=== PATIENT | male | born 1950 | race Caucasian/White ===

== ENCOUNTER 2019-02-13 15:33 | Inpatient (IN) | payer OTHER ==
[~2019-02-13] VITALS: Ht 177.8 cm; Wt 89.4 kg
[2019-02-13 16:08] LABS: BASOPHILS ABSOLUTE AUTO 0.02 K/mm3 (0.00-0.23); BASOPHILS PERCENT AUTO 0 % (0-2); EOSINOPHILS PERCENT AUTO 0 % (0-6); Hematocrit 42.9 % (37.0-53.0); IMMATURE GRAN ABSOLUTE AUTO 0.13 K/mm3 (0.00-0.10); IMMATURE GRAN PERCENT AUTO 1 % (0-1); LYMPHOCYTES ABSOLUTE AUTO 0.88 K/mm3 (0.84-5.20); LYMPHOCYTES PERCENT AUTO 6 % (21-46); MONOCYTES ABSOLUTE AUTO 0.82 K/mm3 (0.16-1.47); MONOCYTES PERCENT AUTO 6 % (4-13); Mean Corpuscular HGB 35.5 pg (26.0-34.0); Mean Corpuscular Volume 101 fL (80-100); Mean Platelet Volume 10.7 fL (9.1-12.4); NEUTROPHILS ABSOLUTE AUTO 12.25 K/mm3 (1.96-9.15); NEUTROPHILS PERCENT AUTO 87 % (41-73); Platelet Count 99 K/mm3 (150-400); RDW Coefficient Variation 13.2 % (11.7-14.2); RDW Standard Deviation 49.1 fL (35.1-46.3); Red Blood Cell Count 4.23 M/mm3 (4.30-5.90)
[2019-02-13 16:39] LABS: Alanine Aminotransfer (ALT/SGP 44 U/L (12-78); Albumin, Blood 2.1 g/dL (3.4-5.0); Albumin/Globulin Ratio 0.4 (0.8-1.8); Alk Phos 113 U/L (50-136); Anion Gap 8 mmol/L (6-16); Aspartate Aminotrans (AST/SGOT 68 U/L (12-37); Bilirubin, Total 1.1 mg/dL (0.1-1.0); Blood Urea Nitrogen 12 mg/dL (8-24); Bun/Creatinine Ratio 11.2 (12.0-20.0); CO2, Blood 27 mmol/L (21-32); Calcium, Blood 7.9 mg/dL (8.5-10.1); Chloride, Blood 99 mmol/L (98-108); Creatinine, Blood 1.07 mg/dL (0.60-1.20); Globulin, Blood 4.7 g/dL (2.2-4.0); Glomerular Filtration Rate >60 (60-); Glucose, Blood 229 mg/dL (70-99); Potassium, Blood 3.3 mmol/L (3.5-5.5); Sodium, Blood 134 mmol/L (136-145); Total Protein, Blood 6.8 g/dL (6.4-8.2); Troponin I 0.015 ng/mL (0.000-0.040)
[2019-02-13] MEDS ORDERED: Bumetanide2 MG PO (20:09)
[2019-02-13] MEDS ORDERED: Aspirin EC81 MG PO (20:09)
[2019-02-13] MEDS ORDERED: CARV3.125 PO (20:10)
[2019-02-13] MEDS ORDERED: CLOP75 PO (20:10)
[2019-02-13] MEDS ORDERED: CHOL10002 PO (20:10)
[2019-02-13] MEDS ORDERED: FURO80 PO (20:11)
[2019-02-13] MEDS ORDERED: FURO20 PO (20:12)
[2019-02-13] MEDS ORDERED: MAGNESIUM400 M1 PO (20:13)
[2019-02-13] MEDS ORDERED: OMEP20ER PO (20:13)
[2019-02-13] MEDS ORDERED: POTA20LUD PO (20:14)
[2019-02-13] MEDS ORDERED: FERSU300 PO (22:15)
[2019-02-13] MEDS ORDERED: Norco 10-325 T1 EACH PO (22:17)
--- NOTE | 2019-02-13 22:36 | NUR ---
Patient arrived to the floor via gurney was able to transfer self to bed indepentantly. was at bedside and assisted with history. Patient settled in bed comfortably. Admission and history completed.
--- NOTE | 2019-02-14 04:25 | NUR ---
SHIFT SUMMARY: 69 Y/O MALE RESTED COMFORABLY IN BED ALL SHIFT WITH RLE ELEVATED ONE PILLOW, RLE WARM AND RED TO TOUCH, DENIES NEED PAIN MEDS AT THIS TIME, HAPPY AND COOPERATIVE, BED LOW POSITION, CALL LIGHT AT SIDE.
[2019-02-14 05:09] LABS: BASOPHILS ABSOLUTE AUTO 0.01 K/mm3 (0.00-0.23); BASOPHILS PERCENT AUTO 0 % (0-2); EOSINOPHILS ABSOLUTE AUTO 0.03 K/mm3 (0.00-0.68); EOSINOPHILS PERCENT AUTO 0 % (0-6); Hematocrit 39.5 % (37.0-53.0); Hemoglobin 13.9 g/dL (13.5-17.5); IMMATURE GRAN ABSOLUTE AUTO 0.02 K/mm3 (0.00-0.10); IMMATURE GRAN PERCENT AUTO 0 % (0-1); LYMPHOCYTES ABSOLUTE AUTO 1.33 K/mm3 (0.84-5.20); LYMPHOCYTES PERCENT AUTO 18 % (21-46); MONOCYTES ABSOLUTE AUTO 0.55 K/mm3 (0.16-1.47); MONOCYTES PERCENT AUTO 7 % (4-13); Mean Corpuscular HGB Conc 35.2 g/dL (31.5-36.5); Mean Corpuscular Volume 102 fL (80-100); Mean Platelet Volume 10.9 fL (9.1-12.4); NEUTROPHILS ABSOLUTE AUTO 5.65 K/mm3 (1.96-9.15); NEUTROPHILS PERCENT AUTO 75 % (41-73); Platelet Count 87 K/mm3 (150-400); RDW Coefficient Variation 13.2 % (11.7-14.2); Red Blood Cell Count 3.86 M/mm3 (4.30-5.90); White Blood Cell Count 7.59 K/mm3 (4.00-11.30)
[2019-02-14 05:22] LABS: Anion Gap 6 mmol/L (6-16); Blood Urea Nitrogen 13 mg/dL (8-24); Bun/Creatinine Ratio 12.3 (12.0-20.0); CO2, Blood 32 mmol/L (21-32); Calcium, Blood 7.7 mg/dL (8.5-10.1); Chloride, Blood 99 mmol/L (98-108); Creatinine, Blood 1.06 mg/dL (0.60-1.20); Glomerular Filtration Rate >60 (60-); Glucose, Blood 128 mg/dL (70-99); Magnesium, Blood 1.3 mg/dL (1.6-2.4); Potassium, Blood 2.9 mmol/L (3.5-5.5); Sodium, Blood 137 mmol/L (136-145)
--- NOTE | 2019-02-14 18:35 | NUR ---
SHIFT SUMMARY RLE RED ON LOWER LEG AND UPPER LATERAL LEG WELL WITH LINES AROUND IT. REPORTS PAIN TO UPPER LATERAL R LEG BUT DECLINES PAIN MEDS. ATTEMPTING TO DOZE WHEN NOT BEING ATTENDED TO. USING URINAL. NO FEVERS. BLOOD PRESSURE IMPROVED SINCE FLUID BOLUS. ASYMPTOMATIC WITH LOW BLOOD PRESSURES. AT BEDSIDE AT THIS TIME. NOTIFIED TODAY OF POSITIVE BLOOD CULTURE.
--- NOTE | 2019-02-14 20:28 | NUR ---
PT WAS NOTED TO HAVE TWO DIFFERENT SETS OF BLOOD CULTURES ORDERED, FIRST SET WAS DRAWN 02/13 AT 1930 PRIOR TO ANTIBIOTICS GETTING STARTED. ANOTHER SET OF BLOOD CULTURES WAS ORDERED FOR THIS EVENING (REPEAT SET). THIS NURSE CALLED MIKHAIL SOTOMAYOR WHOM SAID TO DRAW CULTURES ORDERED BY DR SHELLEY.
--- NOTE | 2019-02-15 04:25 | NUR ---
SHIFT SUMMARY: 69 Y/O MALE RESTED COMFORTABLY ALL SHIFT, DENIES PAIN OR NAUSEA, VOIDING CLEAR YELLOW FLUID, HAPPY AND COOPERATIVE, BED LOW POSITION, CALL LIGHT AT SIDE.
--- NOTE | 2019-02-15 07:57 | NUR ---
BP 99/[address] COVARRUBIAS, HOLD ALDACTONE, ZESTRIL FLOMAX TODAY. REDUCE LASIX TO 60 MG
--- NOTE | 2019-02-15 08:00 | NUR ---
PT PLEASANT TALKATIVE. STATES FEELS BETTER, LEG IMPROVED SOME. HR REG, NO MURMER NOTED. NO TELE. LUNGS CLEAR, RESP EASY, UNLABORED. ON R.A. BT X4 LAST BM TODAY, STATES NORMAL. VOIDS PER JRINAL. 1 ASST TO BATHROOM. BED IN LOW POSITION,C ALL LITEIN REACH, CALLS APPROP
[2019-02-15 09:53] LABS: BASOPHILS ABSOLUTE AUTO 0.02 K/mm3 (0.00-0.23); BASOPHILS PERCENT AUTO 0 % (0-2); EOSINOPHILS ABSOLUTE AUTO 0.44 K/mm3 (0.00-0.68); EOSINOPHILS PERCENT AUTO 8 % (0-6); Hematocrit 40.1 % (37.0-53.0); Hemoglobin 13.6 g/dL (13.5-17.5); IMMATURE GRAN ABSOLUTE AUTO 0.02 K/mm3 (0.00-0.10); IMMATURE GRAN PERCENT AUTO 0 % (0-1); LYMPHOCYTES ABSOLUTE AUTO 1.99 K/mm3 (0.84-5.20); LYMPHOCYTES PERCENT AUTO 34 % (21-46); MONOCYTES ABSOLUTE AUTO 0.75 K/mm3 (0.16-1.47); MONOCYTES PERCENT AUTO 13 % (4-13); Mean Corpuscular HGB 35.7 pg (26.0-34.0); Mean Corpuscular HGB Conc 33.9 g/dL (31.5-36.5); Mean Platelet Volume 10.7 fL (9.1-12.4); NEUTROPHILS ABSOLUTE AUTO 2.64 K/mm3 (1.96-9.15); NEUTROPHILS PERCENT AUTO 45 % (41-73); Platelet Count 113 K/mm3 (150-400); RDW Coefficient Variation 13.3 % (11.7-14.2); RDW Standard Deviation 51.8 fL (35.1-46.3); Red Blood Cell Count 3.81 M/mm3 (4.30-5.90); White Blood Cell Count 5.86 K/mm3 (4.00-11.30)
[2019-02-15 09:56] LABS: Mean Corpuscular Volume 105 fL (80-100)
--- NOTE | 2019-02-15 10:38 | NUR ---
Spiritual care/ advance directive education visit conducted. Patient is lying in bed and alert. Patient easily engages in conversation and shares that he is inspired by cars, motorcycles, family, his dog and his coni (Cristina). Patient tells about his career, his family history, his service ([employer]) and his spiritual journey. I listen empathically, provide companionship and prayer. Patient responds well and asks me to stop by tomorrow. Advance directive information is declined (patient not interested at this time). I will remain available to patient and family.
[2019-02-15 10:50] LABS: Anion Gap 3 mmol/L (6-16); Blood Urea Nitrogen 16 mg/dL (8-24); Bun/Creatinine Ratio 14.3 (12.0-20.0); CO2, Blood 33 mmol/L (21-32); Chloride, Blood 103 mmol/L (98-108); Creatinine, Blood 1.12 mg/dL (0.60-1.20); Glomerular Filtration Rate >60 (60-); Glucose, Blood 188 mg/dL (70-99); Magnesium, Blood 1.5 mg/dL (1.6-2.4); Potassium, Blood 4.5 mmol/L (3.5-5.5); Sodium, Blood 139 mmol/L (136-145)
--- NOTE | 2019-02-15 17:48 | NUR ---
PT PLEASANT COOP AND TALKATIVE TODAY. DID BOLUS THIS AM FOR LOW B/P. DR JOHNATHON XAVIER AFTER BOLUS STARTED. DONE. PT STATES LEGS IMPROVING. BED IN LOW POSITION, CALL LITE IN REACH CALLS APPROP
--- NOTE | 2019-02-15 18:44 | NUR ---
PT C/O SOB. O2 AT 96 % ON R/A. VSS. CALLED RT TO BRING BREATHING TX. PT AGREEABLE.
--- NOTE | 2019-02-16 06:09 | NUR ---
SHIFT SUMMARY: 69 Y/O MALE RESTED COMFORTABLY IN BED ALL SHIFT, DECREASED REDNESS LLE NOTED, +3 EDEMA LLE NOTED, DENIES PAIN OR NAUSEA, VOIDING CLEAR YELLOW FLUID, CHEERFUL, BED LOW POSITION, CALL LIGHT AT SIDE.
--- NOTE | 2019-02-16 08:10 | NUR ---
PT PLEASANT COOP A/O. STATES SOME H/A TODAY. MED PER EMAR. STATES NOT GETTING PRILOSEC IN AM. EXPLAINED IS GETTING AT 5-6 AM. HE DENIES RECEIVING. OVERALL LEG SOME MORE SPREADING, SWELLING SOME IMPROVED. REDDER IN RT FOOT AND THIGH. H/R REG, NO MURMER NOTED. NO TELE. LUNGS CLEAR, RESP EASY, UNLABORED. ON R.A. BT X4 LAST BM TODAY. STATES NORMAL. VOIDS URINAL AND SBA TO BATHROOM. BED IN LOW POSITION, CALL LITE IN REACH, .CALLS APPROP
--- NOTE | 2019-02-16 12:24 | NUR ---
GOING OUT IN WHEELCHAIR WITH FAMILY
--- NOTE | 2019-02-16 14:09 | NUR ---
[facility] CALLED [facility]IMARY [facility]. [facility] REPORTED PT SHOW[facility] TO THE [facility] WITH CONCERNS OF BILLING ISSUES WITH IV STILL IN PLACE. [facility] REPORTS THEY INSTRUCTED PT TO COME BACK TO THE HOSPITAL. OPTOMETRIST/PRACTICE OWNER NOTIFIED THAT PT LEFT HOSPITAL GROUNDS WELL PRIMARY RN.
--- NOTE | 2019-02-16 14:18 | NUR ---
PT BACK TO ROOM I CAME IN FROM LUNCH AT 1330 STATES SOME RASH NOW ON BACK. OBSERVED. BACK DOES INDEED HAVE RED RASH. CALLED DR SHELLEY. UNABLE TO REACH.
--- NOTE | 2019-02-16 17:01 | NUR ---
[address] SHELLEY. HE CALLED RE ASHISH. WILL PLACE ORDERS
--- NOTE | 2019-02-16 18:37 | NUR ---
PT IN TO VISIT TODAY. DID WANT TO TAKE DOGS OUTSIDE THIS AFT. AGREED. HE APPARENTLY WENT TO CT AND WANTED TO VERIFY BILL WOULD BE PAID. CT CALLED US TO INFORM HE THERE. SENT RIGHT BACK. ORGANIZATIONAL CONSULTANT AND THIS RN EXPLAINED HE NOT TO LEAVE FACILITY. HE AGREED. SOME RASH NOTED. LIKELY REACTION. ORDERED BENATRYL. NO OTHER CONSERNS. BED IN LOW POSITIONC, CDALL LITE IN REACH, CALLS APROP
[2019-02-16 22:23] LABS: BASOPHILS ABSOLUTE AUTO 0.01 K/mm3 (0.00-0.23); BASOPHILS PERCENT AUTO 0 % (0-2); EOSINOPHILS ABSOLUTE AUTO 0.47 K/mm3 (0.00-0.68); EOSINOPHILS PERCENT AUTO 9 % (0-6); Hematocrit 42.2 % (37.0-53.0); Hemoglobin 14.2 g/dL (13.5-17.5); IMMATURE GRAN ABSOLUTE AUTO 0.02 K/mm3 (0.00-0.10); IMMATURE GRAN PERCENT AUTO 0 % (0-1); LYMPHOCYTES ABSOLUTE AUTO 1.81 K/mm3 (0.84-5.20); LYMPHOCYTES PERCENT AUTO 35 % (21-46); MONOCYTES ABSOLUTE AUTO 0.73 K/mm3 (0.16-1.47); MONOCYTES PERCENT AUTO 14 % (4-13); Mean Corpuscular HGB Conc 33.6 g/dL (31.5-36.5); Mean Corpuscular Volume 107 fL (80-100); Mean Platelet Volume 10.6 fL (9.1-12.4); NEUTROPHILS ABSOLUTE AUTO 2.19 K/mm3 (1.96-9.15); NEUTROPHILS PERCENT AUTO 42 % (41-73); Platelet Count 110 K/mm3 (150-400); RDW Coefficient Variation 13.2 % (11.7-14.2); RDW Standard Deviation 52.7 fL (35.1-46.3); Red Blood Cell Count 3.94 M/mm3 (4.30-5.90); White Blood Cell Count 5.23 K/mm3 (4.00-11.30)
--- NOTE | 2019-02-17 04:46 | NUR ---
PT REMAINED ALERT ORIENTED THIS SHIFT. NO COMPLAINTS OF PAIN FROM PT HE SLEPT ALL NIGHT. ANTIBIOTICS GIVEN DESCRIBED. RASH DID NOT EVOLVE FURTHER ON HIS BACK. VSS. WILL CONTINUE TO MONITOR.
--- NOTE | 2019-02-17 06:00 | NUR ---
PT WAS HYPOTENSIVE WITH A PULSE OF 100. MD MADE AWARE AND A 500ML NS BOLUS WAS ORDERED AND A LACTIC ACID. WILL CONTINUE TO MONITOR.
--- NOTE | 2019-02-17 15:53 | NUR ---
PATIENT A/OX4, UP INDEPENDENTLY IN ROOM. STARTED ON PREDNISONE TODAY FOR RASH TO R THIGH AND BACK AND BENADRYL GIVEN X1. REDNESS TO RLE CELLULITIS HAS RECEEDED FROM ORIGINAL TRACING. PATIENT REPORTS PAIN HAS IMPROVED. ACHS BLOOD SUGARS, NO COVERAGE NEEDED THIS SHIFT. VSS, ON RA. RT TX PRN. NO ACUTE CHANGES THIS SHIFT. 20G IV TO R AC WNL AND SL. ORAL DOXICYCLINE TO TREAT INFECTION.
--- NOTE | 2019-02-18 06:19 | NUR ---
PATIENT SLEPT LITTLE THIS SHIFT. PT DENIES PAIN AND WAS INDEPEMDENT IN THE ROOM, PT READY TO D/C HOME TODAY
[2019-02-18 09:20] LABS: Anion Gap 4 mmol/L (6-16); Blood Urea Nitrogen 16 mg/dL (8-24); Bun/Creatinine Ratio 21.5 (12.0-20.0); CO2, Blood 21 mmol/L (21-32); Calcium, Blood 8.5 mg/dL (8.5-10.1); Chloride, Blood 109 mmol/L (98-108); Creatinine, Blood 0.74 mg/dL (0.60-1.20); Glomerular Filtration Rate >60 (60-); Glucose, Blood 183 mg/dL (70-99); Potassium, Blood 4.8 mmol/L (3.5-5.5); Sodium, Blood 134 mmol/L (136-145)
[2019-02-18] MEDS ORDERED: DOXY100T53 PO (13:17)
[2019-02-18] MEDS ORDERED: EUCERIN ORIGIN250 ML TOP (13:19)
[2019-02-18] MEDS ORDERED: Loratadine10 MG PO (13:20)
[2019-02-18] MEDS ORDERED: PRED20 PO (13:21)
[2019-02-18] MEDS ORDERED: LEVFLO500 PO (13:46)
--- NOTE | 2019-02-18 14:07 | NUR ---
1353 IV REMOVED PRIOR TO DISCHARGE. NO SS OF INFECTION NOTED AND PATIENT TOLERATED WELL. NURSE WENT OVER DISCHARGE PAPERS WITH PATIENT AND FAMILY. NURSE EDUCATED PATIENT REGARDING NEW MEDS . [facility] PATIENT ESCORTED OUT BY AIDE VIA WC AND TAKEN HOME.
== END 2019-02-18 13:58 | disposition home or self-care (01) | DRG 872 ==
LOC: ER 15:33 → MEDS 21:05
PROVIDERS: Hospitalist; Physician Assistant; ADMIT Internal Medicine
DX: A40.3 Sepsis due to Streptococcus pneumoniae (principal); L03.115 Cellulitis of right lower limb; N17.9 Acute kidney failure, unspecified; E87.1 Hypo-osmolality and hyponatremia; J44.9 Chronic obstructive pulmonary disease, unspecified; I50.9 Heart failure, unspecified; E87.6 Hypokalemia; E83.42 Hypomagnesemia; I95.9 Hypotension, unspecified; R21 Rash and other nonspecific skin eruption; E86.1 Hypovolemia; I89.0 Lymphedema, not elsewhere classified; I73.9 Peripheral vascular disease, unspecified; K74.60 Unspecified cirrhosis of liver; I10 Essential (primary) hypertension; Z87.891 Personal history of nicotine dependence; Z79.02 Long term (current) use of antithrombotics/antiplatelets; Z79.82 Long term (current) use of aspirin; Z79.899 Other long term (current) drug therapy
CPT/HCPCS: 36415; 36416; 71046; 80048; 80053; 82947; 83036; 83605; 83735; 83880; 84484; 85025; 87040; 87081; 87186; 93005; 93010; 93306; 93971; 94640; 94664; 94760; 96365; 98960; 99285-25; A9270-GY; J0690; J0696; J1200; J1650; J3370; J7040; J7050; J7512; Q0163

== ENCOUNTER 2019-03-28 16:03 | Emergency (ER) | payer OTHER ==
[~2019-03-28] VITALS: Ht 180.3 cm; Wt 92.1 kg
[~2019-03-28 16:03] MED LIST: Aspirin EC81 MG PO; Bumetanide2 MG PO; CARV3.125 PO; CHOL10002 PO; CLOP75 PO; DOXY100T53 PO; EUCERIN ORIGIN250 ML TOP; FERSU300 PO; FURO20 PO; FURO80 PO; LEVFLO500 PO; Loratadine10 MG PO; MAGNESIUM400 M1 PO; Norco 10-325 T1 EACH PO; OMEP20ER PO; POTA20LUD PO; PRED20 PO
[2019-03-28 16:50] LABS: BASOPHILS ABSOLUTE AUTO 0.02 K/mm3 (0.00-0.23); BASOPHILS PERCENT AUTO 0 % (0-2); EOSINOPHILS ABSOLUTE AUTO 0.36 K/mm3 (0.00-0.68); EOSINOPHILS PERCENT AUTO 6 % (0-6); Hemoglobin 14.1 g/dL (13.5-17.5); IMMATURE GRAN ABSOLUTE AUTO 0.02 K/mm3 (0.00-0.10); IMMATURE GRAN PERCENT AUTO 0 % (0-1); LYMPHOCYTES ABSOLUTE AUTO 2.22 K/mm3 (0.84-5.20); LYMPHOCYTES PERCENT AUTO 39 % (21-46); MONOCYTES ABSOLUTE AUTO 0.64 K/mm3 (0.16-1.47); MONOCYTES PERCENT AUTO 11 % (4-13); Mean Corpuscular HGB 36.6 pg (26.0-34.0); Mean Corpuscular HGB Conc 34.4 g/dL (31.5-36.5); Mean Corpuscular Volume 107 fL (80-100); Mean Platelet Volume 10.5 fL (9.1-12.4); NEUTROPHILS ABSOLUTE AUTO 2.51 K/mm3 (1.96-9.15); NEUTROPHILS PERCENT AUTO 44 % (41-73); Platelet Count 109 K/mm3 (150-400); RDW Coefficient Variation 13.3 % (11.7-14.2); RDW Standard Deviation 52.7 fL (35.1-46.3); Red Blood Cell Count 3.85 M/mm3 (4.30-5.90); White Blood Cell Count 5.77 K/mm3 (4.00-11.30)
[2019-03-28 17:33] LABS: Alanine Aminotransfer (ALT/SGP 60 U/L (12-78); Albumin, Blood 2.3 g/dL (3.4-5.0); Albumin/Globulin Ratio 0.5 (0.8-1.8); Alk Phos 185 U/L (50-136); Anion Gap 5 mmol/L (6-16); Aspartate Aminotrans (AST/SGOT 106 U/L (12-37); Bilirubin, Total 0.6 mg/dL (0.1-1.0); Blood Urea Nitrogen 9 mg/dL (8-24); Bun/Creatinine Ratio 10.8 (12.0-20.0); CO2, Blood 33 mmol/L (21-32); Calcium, Blood 8.1 mg/dL (8.5-10.1); Chloride, Blood 104 mmol/L (98-108); Creatinine, Blood 0.84 mg/dL (0.60-1.20); Globulin, Blood 4.5 g/dL (2.2-4.0); Glomerular Filtration Rate >60 (60-); Glucose, Blood 121 mg/dL (70-99); Potassium, Blood 3.5 mmol/L (3.5-5.5); Sodium, Blood 142 mmol/L (136-145); Total Protein, Blood 6.8 g/dL (6.4-8.2)
[2019-03-28] MEDS ORDERED: Percocet 5-3251 EACH PO (18:52)
[2019-03-28] MEDS ORDERED: Flonase 0.05% N16 GM (19:03)
== END 2019-03-28 19:06 | disposition home or self-care (01) ==
LOC: ER 16:03
PROVIDERS: Physician Assistant
DX: S00.12XA Contusion of left eyelid and periocular area, initial encounter (principal); R60.0 Localized edema; I50.9 Heart failure, unspecified; J44.9 Chronic obstructive pulmonary disease, unspecified; I10 Essential (primary) hypertension; Z87.891 Personal history of nicotine dependence; Z79.899 Other long term (current) drug therapy; Z79.82 Long term (current) use of aspirin; Z79.02 Long term (current) use of antithrombotics/antiplatelets; Z79.891 Long term (current) use of opiate analgesic; W01.10XA Fall on same level from slipping, tripping and stumbling with subsequent striking against unspecified object, initial encounter
CPT/HCPCS: 36415; 71046; 80053; 83880; 85025; 93005; 93010; 99284-25

== ENCOUNTER 2019-06-04 14:57 | Inpatient (IN) | payer OTHER ==
[~2019-06-04] VITALS: Ht 180.3 cm; Wt 97.1 kg
[~2019-06-04 14:57] MED LIST changes: +Flonase 0.05% N16 GM; +Percocet 5-3251 EACH PO
[2019-06-04 15:47] LABS: BASOPHILS ABSOLUTE AUTO 0.03 K/mm3 (0.00-0.23); BASOPHILS PERCENT AUTO 0 % (0-2); EOSINOPHILS ABSOLUTE AUTO 0.01 K/mm3 (0.00-0.68); EOSINOPHILS PERCENT AUTO 0 % (0-6); Hematocrit 41.7 % (37.0-53.0); Hemoglobin 13.6 g/dL (13.5-17.5); IMMATURE GRAN ABSOLUTE AUTO 0.13 K/mm3 (0.00-0.10); IMMATURE GRAN PERCENT AUTO 1 % (0-1); LYMPHOCYTES ABSOLUTE AUTO 2.23 K/mm3 (0.84-5.20); LYMPHOCYTES PERCENT AUTO 12 % (21-46); MONOCYTES ABSOLUTE AUTO 0.99 K/mm3 (0.16-1.47); MONOCYTES PERCENT AUTO 5 % (4-13); Mean Corpuscular HGB 35.3 pg (26.0-34.0); Mean Corpuscular HGB Conc 32.6 g/dL (31.5-36.5); Mean Corpuscular Volume 108 fL (80-100); Mean Platelet Volume 10.5 fL (9.1-12.4); NEUTROPHILS ABSOLUTE AUTO 14.86 K/mm3 (1.96-9.15); NEUTROPHILS PERCENT AUTO 81 % (41-73); Platelet Count 90 K/mm3 (150-400); RDW Coefficient Variation 13.4 % (11.7-14.2); RDW Standard Deviation 53.4 fL (35.1-46.3); Red Blood Cell Count 3.85 M/mm3 (4.30-5.90); White Blood Cell Count 18.25 K/mm3 (4.00-11.30)
[2019-06-04 16:00] LABS: Alanine Aminotransfer (ALT/SGP 48 U/L (12-78); Albumin, Blood 1.9 g/dL (3.4-5.0); Albumin/Globulin Ratio 0.4 (0.8-1.8); Alk Phos 92 U/L (50-136); Anion Gap 6 mmol/L (6-16); Aspartate Aminotrans (AST/SGOT 79 U/L (12-37); Blood Urea Nitrogen 14 mg/dL (8-24); Bun/Creatinine Ratio 13.5 (12.0-20.0); CO2, Blood 27 mmol/L (21-32); Calcium, Blood 8.3 mg/dL (8.5-10.1); Chloride, Blood 105 mmol/L (98-108); Creatinine, Blood 1.04 mg/dL (0.60-1.20); Globulin, Blood 4.7 g/dL (2.2-4.0); Glomerular Filtration Rate >60 (60-); Glucose, Blood 160 mg/dL (70-99); Potassium, Blood 3.8 mmol/L (3.5-5.5); Sodium, Blood 138 mmol/L (136-145); Total Protein, Blood 6.6 g/dL (6.4-8.2); Troponin I 0.046 ng/mL (0.000-0.040)
[2019-06-04 16:01] LABS: International Normalized Ratio 1.37; Prothrombin Time Results 14.1 Sec (9.7-11.5)
--- NOTE | 2019-06-04 21:30 | NUR ---
RT GAVE TX TO PT, NOTED O2 SATS AT 88%, NOTIFIED, ORDER OBTAINED FOR 02 PER NC AT 3L
--- NOTE | 2019-06-05 00:43 | NUR ---
Reviewing ED notations, ED MD suggested serial troponin levels. However, none were ordered. Call placed to MD conference coordinator for said orders, but Dr Stoddard ordered a Troponin level now to see if Trop level was increasing or decreasing. Order placed, awaiting lab level. Pt asymptomatic.
--- NOTE | 2019-06-05 01:14 | NUR ---
FLU VACCINE HELD UNTIL HEALTH BETTER ABLE TO TOLERATE IT. HAS PNEUMONIA
[2019-06-05 01:30] LABS: Alanine Aminotransfer (ALT/SGP 41 U/L (12-78); Albumin, Blood 1.8 g/dL (3.4-5.0); Albumin/Globulin Ratio 0.4 (0.8-1.8); Alk Phos 106 U/L (50-136); Anion Gap 4 mmol/L (6-16); Aspartate Aminotrans (AST/SGOT 63 U/L (12-37); Bilirubin, Total 0.6 mg/dL (0.1-1.0); Blood Urea Nitrogen 14 mg/dL (8-24); Bun/Creatinine Ratio 14.5 (12.0-20.0); CO2, Blood 29 mmol/L (21-32); Chloride, Blood 106 mmol/L (98-108); Creatinine, Blood 0.97 mg/dL (0.60-1.20); Globulin, Blood 4.5 g/dL (2.2-4.0); Glomerular Filtration Rate >60 (60-); Glucose, Blood 156 mg/dL (70-99); Potassium, Blood 3.7 mmol/L (3.5-5.5); Sodium, Blood 139 mmol/L (136-145); Total Protein, Blood 6.3 g/dL (6.4-8.2)
--- NOTE | 2019-06-05 04:25 | NUR ---
69 YR OLD MALE ADMITTED TO FLOOR FROM THE ED EARLIER IN THE SHIFT FOR LEFT LOWER LOBE PNEUMONIA. ALSO WAS OTED TROP LEVEL 0.040 AT THAT TIME. PLACED ON RESP TREATMENTS AND IVF (SEE MAR AND DOC FLOW SHEETS FOR DETAILS). RT PROVEDED TREATMENT AND ASSESSED 02 SATS WHICH WERE IN THE HIGH 80'S, MD NOTIDIED AND O2 WAS ORDERED AT 3L/MIN. SATS HAVE BEEN OVER 905 SINCE. MD ORDERED FOLLOW UP TROP LEVEL, WAS 0.015 - TRENDING DOWN. CHARGE NURSE NOTIFIED PER PROTOCOL. RESTING COMFORTABLY. CALL LIGHT IN REACH. WILL CONTINUE TO MONITOR.
--- NOTE | 2019-06-05 18:37 | NUR ---
SHIFT SUMMARY PT SLEEPING MOST OF MORNING. AWAKE AND ALERT THIS AFTERNOON WATCHING TV. REPORTS A SEVERE HEADACHE THAT OXYCODONE IS HELPING. SITTING UP ON SIDE OF BED EATING MEALS. S.O. AT BEDSIDE THIS EVENING. NEEDED REMINDING TO KEEP O2 ON THIS MORNING SINCE HIS SATS DROPPED TO THE 80'S ON ROOM AIR. REPORTS SOB WITH ANY ACTIVITY.
[2019-06-06 04:51] LABS: BASOPHILS ABSOLUTE AUTO 0.02 K/mm3 (0.00-0.23); BASOPHILS PERCENT AUTO 0 % (0-2); EOSINOPHILS ABSOLUTE AUTO 0.43 K/mm3 (0.00-0.68); EOSINOPHILS PERCENT AUTO 5 % (0-6); Hematocrit 41.2 % (37.0-53.0); Hemoglobin 13.5 g/dL (13.5-17.5); IMMATURE GRAN ABSOLUTE AUTO 0.02 K/mm3 (0.00-0.10); IMMATURE GRAN PERCENT AUTO 0 % (0-1); LYMPHOCYTES ABSOLUTE AUTO 2.46 K/mm3 (0.84-5.20); LYMPHOCYTES PERCENT AUTO 29 % (21-46); MONOCYTES ABSOLUTE AUTO 0.94 K/mm3 (0.16-1.47); MONOCYTES PERCENT AUTO 11 % (4-13); Mean Corpuscular HGB 34.4 pg (26.0-34.0); Mean Corpuscular HGB Conc 32.8 g/dL (31.5-36.5); Mean Corpuscular Volume 105 fL (80-100); Mean Platelet Volume 10.5 fL (9.1-12.4); NEUTROPHILS ABSOLUTE AUTO 4.59 K/mm3 (1.96-9.15); NEUTROPHILS PERCENT AUTO 54 % (41-73); Platelet Count 100 K/mm3 (150-400); RDW Coefficient Variation 13.6 % (11.7-14.2); RDW Standard Deviation 51.8 fL (35.1-46.3); Red Blood Cell Count 3.92 M/mm3 (4.30-5.90); White Blood Cell Count 8.46 K/mm3 (4.00-11.30)
[2019-06-06 05:01] LABS: Anion Gap 5 mmol/L (6-16); Blood Urea Nitrogen 14 mg/dL (8-24); Bun/Creatinine Ratio 15.8 (12.0-20.0); CO2, Blood 31 mmol/L (21-32); Calcium, Blood 8.1 mg/dL (8.5-10.1); Chloride, Blood 104 mmol/L (98-108); Creatinine, Blood 0.88 mg/dL (0.60-1.20); Glomerular Filtration Rate >60 (60-); Glucose, Blood 70 mg/dL (70-99); Sodium, Blood 140 mmol/L (136-145)
--- NOTE | 2019-06-06 05:26 | NUR ---
K+ DROPPED WITH THIS AM LABS TO 3.0. REPORTED FINDINGS TO DR SHELLEY. ORDERS KCL 40 MEQ IV X 1.
--- NOTE | 2019-06-06 06:15 | NUR ---
SHIFT SUMMARY K+ AT 3.0 THIS AM, RECIEVING 40 MEQ IV KCL AT THIS TIME. SEE PRIOR NOTE. ON 3L VIA NC , O2 SATS 92-94%, CONT PULSE OX IN PLACE. LR INFUSING @ 75 ML/HR. 3+ EDEMA TO BLE. LS RHONCHI IN BASES. AFEBRILE. LARGE BM TONIGHT. OXYCODONE AND TYLENOL GIVEN ONCE FOR SEVERE LOJA, PROVIDES RELIEF. WILL CONT TO MONITOR AND PROVIDE CARE UNTIL PRESUMED BY ONCOMING RN.
--- NOTE | 2019-06-06 08:53 | NUR ---
0891 PT STATED THE K+ WAS BURNING AND WAS TRYING TO RIP IV OUT. THIS NURSE SLOWED DOWN K+ TO 15ML/HR AND STARTED NS AT 30 TO HELP DILUTE . PATIENT CONTINUED TO CRY OUT IN PAIN AND STARTED TO REMOVE IV. THIS NURSE STOPPED INFUSION AND WILL NOTIFY DOCTOR.
--- NOTE | 2019-06-06 18:13 | NUR ---
NO ACUTE CHANGES TO PATIENT. HE HAS RESTED MOST OF THE SHIFT. HAD SHOWER AND WAS ABLE TO AMBULATE WITH SBA TO RESTROOM. K+ WAS STOPPED DUE TO UNBEARABLE PAIN ACCORDING TO THE PATIENT. HE HAS TOLERATED OTHER MEDICATIONS THROUGH THE IV THOUGH. NO ACUTE CHANGES. CALL LIGHT WITHIN [facility].
--- NOTE | 2019-06-07 04:53 | NUR ---
Shift Summary Patient slept intermittently overnight. He offered no c/o SOB at rest. ambulated to with SBA.
[2019-06-07 06:22] LABS: Anion Gap 5 mmol/L (6-16); Blood Urea Nitrogen 14 mg/dL (8-24); Bun/Creatinine Ratio 16.2 (12.0-20.0); CO2, Blood 31 mmol/L (21-32); Calcium, Blood 7.8 mg/dL (8.5-10.1); Chloride, Blood 105 mmol/L (98-108); Creatinine, Blood 0.86 mg/dL (0.60-1.20); Glomerular Filtration Rate >60 (60-); Glucose, Blood 72 mg/dL (70-99); Potassium, Blood 4.1 mmol/L (3.5-5.5); Sodium, Blood 141 mmol/L (136-145)
[2019-06-07 06:38] LABS: BASOPHILS ABSOLUTE AUTO 0.01 K/mm3 (0.00-0.23); BASOPHILS PERCENT AUTO 0 % (0-2); EOSINOPHILS ABSOLUTE AUTO 0.39 K/mm3 (0.00-0.68); EOSINOPHILS PERCENT AUTO 6 % (0-6); Hematocrit 42.4 % (37.0-53.0); Hemoglobin 14.4 g/dL (13.5-17.5); IMMATURE GRAN ABSOLUTE AUTO 0.01 K/mm3 (0.00-0.10); IMMATURE GRAN PERCENT AUTO 0 % (0-1); LYMPHOCYTES ABSOLUTE AUTO 2.26 K/mm3 (0.84-5.20); LYMPHOCYTES PERCENT AUTO 36 % (21-46); MONOCYTES ABSOLUTE AUTO 0.74 K/mm3 (0.16-1.47); MONOCYTES PERCENT AUTO 12 % (4-13); Mean Corpuscular HGB 35.6 pg (26.0-34.0); Mean Corpuscular Volume 105 fL (80-100); Mean Platelet Volume 10.2 fL (9.1-12.4); NEUTROPHILS ABSOLUTE AUTO 2.89 K/mm3 (1.96-9.15); NEUTROPHILS PERCENT AUTO 46 % (41-73); Platelet Count 110 K/mm3 (150-400); RDW Coefficient Variation 13.3 % (11.7-14.2); RDW Standard Deviation 52.3 fL (35.1-46.3); Red Blood Cell Count 4.04 M/mm3 (4.30-5.90)
--- NOTE | 2019-06-07 18:30 | NUR ---
PATIENT ADDMITTED AFTER PEG PLACEMENT. THIS NURSE EDUCATED DAUGHTER, WHO IS PRIMARY CAREGIVER, ON HOW TO ADMINISTER FEED AND MEDS THROUGH TUBE. PATIENT HAS RESTED SINCE HE CAME TO THE FLOOR. OTHER THAN THE PEG PLACEMENT THE PATIENT HAS NO BREAKDOWN TO HIS SKIN. HE HAS OLD MAN SKIN BUT NO SORES, OPEN WOUNDS , OR TEARS. SKIN IS FRAGILE . HE IS ALERT AND ORIENTED AND IS SHARP AND WHITTY AND HAS A SENSE OF HUMOR WITH STAFF. CALL LIGHT WITHIN REACH.
--- NOTE | 2019-06-07 23:51 | NUR ---
PATIENT UP WITH VISITORS. DENIES PAIN, SOB, AND N/V. ON 3L O2 NC. CALL LIGHT IN REACH.
--- NOTE | 2019-06-08 03:18 | NUR ---
SHIFT SUMMARY PATIENT HAD NO ACUTE CHANGES OBSERVED. AXOX 4 AND INDEPENDENT IN ROOM. SPOUSE AND VISITOR/BROTHER PRESENT. PIV REMAINS INTACT. VSS/AFEBRILE. DENIES PAIN, AND N/V. ON 3L O2 NC AND RA BASELINE. RT IN FOR BREATHNG TX. IV ABX INFUSED. REPORTS BREATHING SLOWLY IMPROVING AND MOVING AROUND IN ROOM HELPS. COOPERATIVE WITH CARE. CALL LIGHT IN REACH. BED IN LOWEST POSITION. WILL CONTINUE TO MONITOR UNTIL DAY SHIFT NURSE ASSUMES CARE.
[2019-06-08] MEDS ORDERED: FURO40 PO (12:55)
[2019-06-08] MEDS ORDERED: CARV6.25 PO (12:55)
[2019-06-08] MEDS ORDERED: AZIT500 PO (12:56)
[2019-06-08] MEDS ORDERED: MUCUS ER600 MG PO (12:57)
[2019-06-08] MEDS ORDERED: ALBU3IS INH (12:58)
[2019-06-08] MEDS ORDERED: ROXICODONE5 MG PO (12:59)
--- NOTE | 2019-06-08 13:58 | NUR ---
PT WAS DCD HOME WITH . RX SENT TO [facility] PER PT REQUEST. IV WAS PULLED BY PT. [facility] AND SCHEDULING OF THE PCP FOLLOW UP APPT WILL BE SCHEDULED BY THE PT WHEN HE GOES TO SENIOR GROUP MANAGER HIS O2. ALL MEDS AND INSTRUCTIONS REVIEWED WITH PT AND WHO VERBALIZED AN UNDERSTANDING. ALL PERSONAL BELONGINGS SENT WITH PT. PT STABLE UPON DC.
== END 2019-06-08 14:01 | disposition home or self-care (01) | DRG 871 ==
LOC: ER 14:57 → MEDS 17:06
PROVIDERS: Emergency Medicine; Internal Medicine; ADMIT Internal Medicine
DX: A41.9 Sepsis, unspecified organism (principal); J96.01 Acute respiratory failure with hypoxia; J18.9 Pneumonia, unspecified organism; J44.0 Chronic obstructive pulmonary disease with (acute) lower respiratory infection; I50.32 Chronic diastolic (congestive) heart failure; E46 Unspecified protein-calorie malnutrition; R65.20 Severe sepsis without septic shock; E87.6 Hypokalemia; K70.30 Alcoholic cirrhosis of liver without ascites; B18.2 Chronic viral hepatitis C; D69.6 Thrombocytopenia, unspecified; K80.20 Calculus of gallbladder without cholecystitis without obstruction; N20.0 Calculus of kidney; K21.9 Gastro-esophageal reflux disease without esophagitis; Z79.02 Long term (current) use of antithrombotics/antiplatelets; Z79.82 Long term (current) use of aspirin; Z79.899 Other long term (current) drug therapy; Z68.28 Body mass index [BMI] 28.0-28.9, adult
CPT/HCPCS: 36415; 71045; 71046; 80048; 80053; 83605; 83880; 84145; 84484; 85025; 85610; 87040; 93005; 93010; 94640; 94760; 94762; 96361; 96365; 96367; 99285-25; A9270; J0456; J0696; J1650; J3480; J7030; J7050; J7120

== ENCOUNTER 2019-06-27 09:42 | Inpatient (IN) | payer OTHER ==
[~2019-06-27] VITALS: Ht 180.3 cm; Wt 89.0 kg
[~2019-06-27 09:42] MED LIST changes: +ALBU3IS INH; +AZIT500 PO; +CARV6.25 PO; +FURO40 PO; +MUCUS ER600 MG PO; -POTA20LUD PO; +POTCHL20ER PO; +ROXICODONE5 MG PO
[2019-06-27 10:35] LABS: Hematocrit 50.2 % (37.0-53.0); Hemoglobin 17.7 g/dL (13.5-17.5); Mean Corpuscular HGB 35.6 pg (26.0-34.0); Mean Corpuscular HGB Conc 35.3 g/dL (31.5-36.5); Mean Corpuscular Volume 101 fL (80-100); Mean Platelet Volume 10.2 fL (9.1-12.4); Platelet Count 106 K/mm3 (150-400); RDW Coefficient Variation 14.3 % (11.7-14.2); RDW Standard Deviation 53.1 fL (35.1-46.3); Red Blood Cell Count 4.97 M/mm3 (4.30-5.90); White Blood Cell Count 35.17 K/mm3 (4.00-11.30)
[2019-06-27 10:53] LABS: Alanine Aminotransfer (ALT/SGP 58 U/L (12-78); Albumin, Blood 1.8 g/dL (3.4-5.0); Albumin/Globulin Ratio 0.4 (0.8-1.8); Alk Phos 145 U/L (50-136); Anion Gap 10 mmol/L (6-16); Aspartate Aminotrans (AST/SGOT 40 U/L (12-37); Bilirubin, Total 2.6 mg/dL (0.1-1.0); Blood Urea Nitrogen 35 mg/dL (8-24); Bun/Creatinine Ratio 29.4 (12.0-20.0); CO2, Blood 26 mmol/L (21-32); Calcium, Blood 9.3 mg/dL (8.5-10.1); Chloride, Blood 94 mmol/L (98-108); Creatinine, Blood 1.19 mg/dL (0.60-1.20); Globulin, Blood 4.7 g/dL (2.2-4.0); Glomerular Filtration Rate >60 (60-); Glucose, Blood 205 mg/dL (70-99); Potassium, Blood 3.7 mmol/L (3.5-5.5); Sodium, Blood 130 mmol/L (136-145); Total Protein, Blood 6.5 g/dL (6.4-8.2); Troponin I <0.015 ng/mL (0.000-0.040)
[2019-06-27 10:54] LABS: International Normalized Ratio 1.58; Prothrombin Time Results 16.1 Sec (9.7-11.5)
[2019-06-27 11:15] LABS: BAND PERCENT MAN 19 % (0-8); BASOPHILS PERCENT MAN 0 % (0-2); EOSINOPHILS PERCENT MAN 0 % (0-6); LYMPHOCYTES PERCENT MAN 2 % (21-46); METAMYELOCYTE ABSOLUTE MAN 0.35 K/mm3 (0.00-0.00); METAMYELOCYTE PERCENT MAN 1 % (0-0); MONOCYTES PERCENT MAN 4 % (4-13); SEG NEUTROPHILS PERCENT MAN 74 % (41-73); TOTAL CELLS COUNTED 100
[2019-06-27 12:46] LABS: Source, Urine Catheter
[2019-06-27 12:56] LABS: Blood, Urine 5+ (Neg); Glucose Qualitative, Urine Neg (Neg); Ketones, Urine Neg (Neg); Leukocyte Esterase, Urine 1+ (Neg); Nitrite, Urine Neg (Neg); Protein, Urine 1+ (Neg); Specific Gravity, Urine 1.015 (1.003-1.022); Urobilinogen, Urine 2+ (Normal)
[2019-06-27 13:12] LABS: Appearance, Urine Hazy (Clear); Bilirubin, Urine 1+ (Neg); Color, Urine Amber (P-Yellow)
[2019-06-27 13:14] LABS: Hyaline Casts 25-50 /lpf (0-2); Red Blood Cells, Urine 25-50 /hpf (0-2)
[2019-06-27 13:15] LABS: Bacteria Few /hpf; Squamous Epithelial Cells Few /hpf (Few)
--- NOTE | 2019-06-27 16:47 | NUR ---
PROVIDER AT BEDSIDE DR. SAMUELS AT BEDSIDE FOR ASSESSMENT
[2019-06-27 19:10] LABS: Adenovirus Not Detected (NOT DETECT); Bordetella pertussis Not Detected (NOT DETECT); Chlamydophila pneumoniae Not Detected (NOT DETECT); Coronavirus 229E Not Detected (NOT DETECT); Coronavirus HKU1 Not Detected (NOT DETECT); Coronavirus NL63 Not Detected (NOT DETECT); Coronavirus OC43 Not Detected (NOT DETECT); Human Metapneumovirus Not Detected (NOT DETECT); Human Rhinovirus/Enterovirus Not Detected (NOT DETECT); Influenza A Not Detected (NOT DETECT); Influenza A/2009-H1 Not Detected (NOT DETECT); Influenza A/H1 Not Detected (NOT DETECT); Influenza A/H3 Not Detected (NOT DETECT); Influenza B Not Detected (NOT DETECT); Mycoplasma pneumoniae Not Detected (NOT DETECT); Parainfluenza Virus 1 Not Detected (NOT DETECT); Parainfluenza Virus 2 Not Detected (NOT DETECT); Parainfluenza Virus 3 Not Detected (NOT DETECT); Parainfluenza Virus 4 Not Detected (NOT DETECT); Respiratory Syncytial Virus Not Detected (NOT DETECT)
--- NOTE | 2019-06-27 19:15 | NUR ---
ASSUME CARE: REPORT RECIEVED FROM SEAN OFF GOING RN. FAMILY AT BEDSIDE ATTENTIVE TO NEEDS DR MENESES IN FOR UPDATE. NO ORDERS NOTED. LUNG SOUNDS WITH CXOARSE SOUNDS UPPERS AND DECREASED SOUNDS WITH CRACKLES ABDPMEN SOFT WITH BOWEL SOUNDS FOUR QUADS. VOIDS AMBERE URINE. LOWER EXTREMITIES WITH PAS AND THREE PLUS EDEMA . INSISTS ON SITTING AT EDGE OF BED WITH FEET ON FLOOR. OXYMIZER AT 12L/MIN SITH SPO2 84-90% CONTINUE TO MONITOR AND REPORT CHANGE IN PATIENT CONDITION
--- NOTE | 2019-06-27 19:27 | NUR ---
SUMMARY PT ARRIVED TO ICU 15 THIS AFTERNOON. PT ON 12 LPM OXYMIZER. UNABLE TO TITRATE SINCE ARRIVAL. DILTIAZEM ON FOR AFIB. SINCE THEN, PT HAS BEEN TITRATED OFF OF DILTIAZEM FOR LOW BLOOD PRESSURE AND GIVEN MULTIPLE BOLUSES. HR INCREASED TO 130'S-140'S, DISCUSSED WITH DR. SAMUELS AND PT BACK ON DILTIAZEM. ALBUMIN ALSO INITIATED. PT AFEBRILE. PT ALERT, EXTREMELY TALKATIVE AND DENIES DIZZINESS, SHORTNESS OF BREATH OR PAIN FOR DURATION OF TIME SINCE ARRIVAL TO ICU. MED REC NOT COMPLETED PT STATES, "I TAKE A BIG BOX OF PILLS I DON'T KNOW EXACTLY." PT STATES SIGNIFICANT OTHER WILL BRING IN MEDICATION LIST. PT EXTREMELY HARD OF HEARING, COMPLETED HISTORY TO BEST OF ABILITY WITH COMMUNICATION BARRIERS. PT FRUSTRATED BY LACK OF FOOD AND WATER, EXPLAINED TO PATIENT THE NEED FOR FURTHER ASSESSMENT FOR HIS SAFETY. AT CHANGE OF SHIFT, PT'S SIGNIFICANT OTHER AT BEDSIDE.
--- NOTE | 2019-06-27 19:27 | NUR ---
REPORT TO HOLGER BRITO TO ASSUME CARE
[2019-06-28 02:17] LABS: Base Excess Venous -0.8 mmol/L; Bicarbonate Venous 22.7 mmol/L (24.0-30.0); PCO2 Venous 47.2 mmHg (38-42); PO2 Venous 41.2 mmHg (38-42); pH Blood Venous 7.33 (7.34-7.37)
--- NOTE | 2019-06-28 02:43 | NUR ---
DR SHELLEY IN TO SEE SECONDARY TO INCREASING AGITATION. REFUSAL TO LAEAVE O2 IN NOSE. ORDERS NOTED. CONTINUE TO MONITOR AND REPORT CHANGE IN PATIENT CONDITION L AUDIBLE CRACKLES AND COUGHING UP BRIGHT RED BLOOD.
[2019-06-28 05:14] LABS: Hematocrit 42.5 % (37.0-53.0); Hemoglobin 14.4 g/dL (13.5-17.5); Mean Corpuscular HGB 35.5 pg (26.0-34.0); Mean Corpuscular HGB Conc 33.9 g/dL (31.5-36.5); Mean Platelet Volume 10.7 fL (9.1-12.4); Platelet Count 74 K/mm3 (150-400); RDW Coefficient Variation 14.7 % (11.7-14.2); RDW Standard Deviation 57.2 fL (35.1-46.3); Red Blood Cell Count 4.06 M/mm3 (4.30-5.90); White Blood Cell Count 21.38 K/mm3 (4.00-11.30)
[2019-06-28 05:19] LABS: Mean Corpuscular Volume 105 fL (80-100)
[2019-06-28 05:26] LABS: International Normalized Ratio 1.75; Prothrombin Time Results 17.6 Sec (9.7-11.5)
[2019-06-28 05:32] LABS: Alanine Aminotransfer (ALT/SGP 40 U/L (12-78); Albumin, Blood 2.6 g/dL (3.4-5.0); Albumin/Globulin Ratio 0.9 (0.8-1.8); Alk Phos 75 U/L (50-136); Anion Gap 10 mmol/L (6-16); Aspartate Aminotrans (AST/SGOT 40 U/L (12-37); Bilirubin, Total 3.6 mg/dL (0.1-1.0); Blood Urea Nitrogen 36 mg/dL (8-24); Bun/Creatinine Ratio 32.4 (12.0-20.0); CO2, Blood 25 mmol/L (21-32); Calcium, Blood 8.6 mg/dL (8.5-10.1); Chloride, Blood 102 mmol/L (98-108); Creatinine, Blood 1.11 mg/dL (0.60-1.20); Globulin, Blood 2.8 g/dL (2.2-4.0); Glomerular Filtration Rate >60 (60-); Glucose, Blood 145 mg/dL (70-99); Potassium, Blood 3.7 mmol/L (3.5-5.5); Sodium, Blood 137 mmol/L (136-145); Total Protein, Blood 5.4 g/dL (6.4-8.2)
[2019-06-28 05:40] LABS: BAND PERCENT MAN 15 % (0-8); BASOPHILS PERCENT MAN 0 % (0-2); EOSINOPHILS PERCENT MAN 0 % (0-6); LYMPHOCYTES ABSOLUTE MAN 0.85 K/mm3 (0.84-5.20); LYMPHOCYTES PERCENT MAN 4 % (21-46); METAMYELOCYTE ABSOLUTE MAN 0.42 K/mm3 (0.00-0.00); METAMYELOCYTE PERCENT MAN 2 % (0-0); MONOCYTES ABSOLUTE MAN 0.21 K/mm3 (0.16-1.47); MONOCYTES PERCENT MAN 1 % (4-13); NEUTROPHILS ABSOLUTE MAN 19.88 K/mm3 (1.96-9.15); SEG NEUTROPHILS PERCENT MAN 78 % (41-73); TOTAL CELLS COUNTED 100
--- NOTE | 2019-06-28 06:30 | NUR ---
SHIFT SUMMARY: MONITOR INTACT SHOWING A FLUTTER. HEART RATE 90'S-110'S. LUNGS WITH CRACKLES T/O .DR SAMUELS NOTIFIED ORDERS NOTED. ABDOMEN SOFT WITH BOWEL SOUNDS FOUR QUADS. PAS TO LOWER EXTREMITIES. 16 THAI BOYER PLACED USING STERILE TECHNIQUE, WITH IMMIDEATE RETURN OF DARK DEVONTE URINE. SPECIMAN SENT. REMAINS ON HIGH FLOW O2 WITH SETTINGS OF 50 AND 75. RESPIRATIONS 30-45/MIN SPO2 89-94%. RESTS QUIETLY ON PRECEDEX. CONTINUE TO MONITOR AND REPORT CHANGE IN PATIENT CONDITION
[2019-06-28 07:22] LABS: Source, Urine Catheter
[2019-06-28 07:25] LABS: Bilirubin, Urine Neg (Neg); Blood, Urine 5+ (Neg); Glucose Qualitative, Urine Neg (Neg); Ketones, Urine Neg (Neg); Leukocyte Esterase, Urine Neg (Neg); Nitrite, Urine Neg (Neg); Protein, Urine 2+ (Neg); Specific Gravity, Urine 1.015 (1.003-1.022); Urobilinogen, Urine 1+ (Normal)
[2019-06-28 07:33] LABS: Appearance, Urine Hazy (Clear); Color, Urine Yellow (P-Yellow)
[2019-06-28 07:35] LABS: Amorphous Light (0-Heavy); Bacteria Rare /hpf; Red Blood Cells, Urine 50-100 /hpf (0-2); Squamous Epithelial Cells Rare /hpf (Few); White Blood Cells, Urine Not Seen /hpf (0-5)
--- NOTE | 2019-06-28 08:00 | NUR ---
INITIAL ASSESSMENT PATIENT RESPONDED TO VERBAL STIMULI. PATIENT ALERT AND ORIENTED X 4, HOWEVER DOESN'T APPEAR TO UNDERSTAND THE CONDITION HE IS IN. PATIENT CONTINUES TO ASK FOR DRINKS OF WATER BUT IS CONTINUED TO BE INFORMED THAT HE IS NPO AT THIS TIME. PATIENT GIVEN WATER SWABS. PATIENT SPEECH IS GARBLED. 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 PATIENT WEAK/ DECONDITIONED. KYPHOSIS NOTED. PATIENT HAS TEMP OF 99.3 DEGREES FAHRENHEIT. PATIENT LABILE. PATIENT APPEARS EITHER WITHDRAWN OR AGITATED. PATIENT SATTING 90% AND GREATER ON AIRVO 50 L AND 75% FIO2. LUNGS COARSE T/O. SOB WITH EXERTION. BREATHING LABORED. PATIENT HAS MOIST COUGH. PATIENT THROAT SUCTIONED- PRODUCED LARGE AMOUNT OF THICK/ THIN, BLOODY SECRETIONS. PATIENT IN A.FIB, HR 90S TO 110. SBP IN THE 90S. PULSES STRONG. CARDIZEM OFF AT 0400 PER MAINTENANCE SUPERVISOR 2ND SHIFT RN. SCDS IN PLACE. ABDOMEN MILDLY DISTENDED, SOFT, WITH HYPOACTIVE BS. DATE OF LAST BM UNKNOWN. BOYER IN PLACE- DRAINING DEVONTE COLORED URINE. 3+ EDEMA NOTED TO BLES. SKIN FRAGILE, JAUNDICED, SCALING. COCCYX REDDENED. BRUISING NOTED TO ABDOMEN AND BUES. SCABS NOTED TO BUES AND BLES. NS TKO. BED LOW, CALL LIGHT IN REACH. WILL CONTINUE TO MONITOR PATIENT FREQUENTLY THROUGHOUT SHIFT.
--- NOTE | 2019-06-28 09:23 | NUR ---
DR. SAMUELS INTO SEE PATIENT THIS AM. DOCTOR INFORMED OF TEMP OF 99.3 DEGREES FAHRENHEIT. INFORMED THAT PATIENT LARGE AMOUNT OF THIN TO THICK SECRETIONS IN BACK OF THROAT. PATIENT SUCTIONED BUT 5 MINUTES LATER HAD BUILT BACK UP IN BACK OF THROAT. SPEECH THERAPIST SPOKE TO DR SAMUELS. PATIENT CHANGED TO NPO. DR. SAMUELS SAID THAT IT WAS OKAY TO GIVE VERY SMALL SIPS OF WATER AND ICE CHIPS. SPOKE WITH ABOUT PO MEDS. STATED HE WOULD CHANGE MED ORDERS. ASKED WITH BLEEDING IF HE WANTED TO CONTINUE LOVENOX. STATED HE WOULD LIKE TO CONTINUE IT AT THIS TIME. INFORMED THAT CARDIZEM OFF AROUND 0400 THIS AM. STATED THAT IF HR INCREASES THEN TRY AND CONTROL WITH PRECEDEX BEFORE RESTARTING CARDIZEM DRIP. INFORMED THAT OLD EKGS IN FRONT OF PATIENT CHART IF HE WOULD LIKE TO LOOK AT THEM.
--- NOTE | 2019-06-28 10:20 | NUR ---
PATIENT VERY AGITATED AND UPSET. PATIENT MAD BECAUSE SAYS CAN'T BREATH WITH O2 IN EITHER HIS MOUTH OR NOSE. PATIENT DESATS QUICKLY DOWN TO 70S WITHOUT AIRVO IN PLACE. PATIENT INFORMED THAT IF HE CONTINUES TO TAKE HIS 02 OFF THEN HE WILL NEED TO BE RESTRAINED. DR. ARVIZU IN ROOM TO SEE PATIENT. NURSE TRIED TO CALL PATIENT'S BUT IT SAYS THE LINE HAS BEEN DISCONNECTED.
--- NOTE | 2019-06-28 12:00 | NUR ---
PATIENT ON PRECEDEX DRIP AT 0.7 MCG/ KG/ HOUR. PATIENT HAS TEMP OF 100.3 DEGREES FAHRENHEIT. PATIENT SATTING 90% AND GREATER ON AIRVO 55 L AND 75% FIO2. PATIENT REMAINS IN A.FIB, HR 90S TO 120S. SBP 80S TO 90S. NO SIGNS OF PAIN NOTED AT THIS TIME. WILL CONTINUE TO MONITOR.
--- NOTE | 2019-06-28 12:05 | NUR ---
PATIENT SLIGHTLY LESS AGITATED THAN BEFORE DUE TO PAIN MEDICATION FOR CHRONIC BACK PAIN AND PRECEDEX FOR AGITATION. PATIENT INFORMED THAT LONG TIME GIRLFRIEND WAS CALLED BUT THAT THEY PHONE SAID LINE WAS DISCONNECTED. PATIENT ASKED IF NURSE COULD CALL HIS DAUGHTER LUIS TO SPEAK WITH HER AND UPDATE HER AND SO HE COULD SPEAK WITH HER WELL. PATIENT STATES THAT DAUGHTER LUIS IS A NURSE IN [place]. LUIS CALLED ON PATIENT'S PHONE HE HAD PHONE NUMBER IN PHONE. DAUGHTER UPDATED ON PATIENT'S CONDITION AND AGITATION. DAUGHTER INFORMED THAT PATIENT APPEARS MOSTLY ALERT AND ORIENTED TO QUESTION NURSE ASKS BUT THAT IT DOES NOT APPEAR THAT HE IS UNDERSTANDING HIS SERIOUS CONDITION. INFORMED THAT PATIENT MOSTLY STUCK ON WANTING WATER AND PAIN MEDS. NURSE HELD PHONE TO PATIENT'S EAR WHILE HE VISITED WITH DAUGHTER. DR. SAMUELS THEN SPOKE WITH PATIENT'S DAUGHTER FOR QUITE SOME TIME TO DISCUSS PATIENT STATUS AND CARE. NURSE ASKED PATIENT ABOUT CINTIA. PATIENT STATED THAT CINTIA IS IS GIRLFRIEND BUT THAT THEY HAVE LIVED WITH EACH OTHER FOR 30 YEARS. PATIENT ASKED WHO HE WOULD LIKE TO MAKE MEDICAL DECISIONS FOR HIM AND HE STATED "BOTH". NURSE ASKED IF THEY SPEAK TO EACH OTHER AND PATIENT STATED "OH YES". NURSE THEN SPOKE TO LUIS AGAIN. LUIS STATED THAT SHE WAS GOING TO CALL CINTIA AND UPDATE HER ON THE SITUATION NURSE COULD NOT GET AHOLD OF HER. LUIS THEN STATED THAT SHE WAS GOING TO GET A FLIGHT TODAY AND THEN HER AND CINTIA COULD SPEAK TO THE PATIENT BEFORE INTUBATION, IF THAT WERE TO BECOME NECESSARY. LUIS STATED, "I KNOW MY DAD AND HE WOULD NOT WANT TO HAVE A PEG TUBE OR A TRACH". LUIS GIVEN UNITS NUMBER AND TO CALL WITH ANY UPDATES OR QUESTIONS AT ANY TIME. DAUGHTER INFORMED THAT SHE WILL BE CALLED IF THERE ARE ANY SIGNIFICANT CHANGES. PALLIATIVE CARE NURSES INFORMED ON PATIENT AND IN ROOM TO SEE HIM.
--- NOTE | 2019-06-28 12:39 | NUR ---
PATIENT'S GIRLFRIEND, CINTIA, CALLED UNIT AFTER SPEAKING WITH PATIENT'S DAUGHTER, LUIS. CINTIA UPDATED ON PATIENT CONDITION/ STATUS. CINTIA STATED THAT LUIS TOLD HER SHE WOULD BE HERE TONIGHT. CINTIA STATED THAT SHE WOULD BE HERE TO SEE PATIENT SOON.
--- NOTE | 2019-06-28 14:00 | NUR ---
DR. SAMUELS INFORMED OF HYPOTENSION. STATED THAT BP OKAY BECAUSE MAP OVER 55. DOCTOR STATED THAT BP OKAY IF EITHER MAP OVER 55 OR SBP OVER 85. WILL CONTINUE TO MONITOR.
--- NOTE | 2019-06-28 16:00 | NUR ---
PATIENT ON PRECEDEX AT 0.4 MCG/ KG/ HOUR. PATIENT RESTING QUIETLY IN BED. NO SIGNS OF PAIN. TEMPERATURE 99.6 DEGREES FAHRENHEIT. PATIENT ON AIRVO 55 L AND 69% FIO2. GIRLFRIEND, CINTIA, AND MALE FRIEND IN ROOM. NO OTHER ACUTE CHANGES TO NOTE ON AT THIS TIME. WILL CONTINUE TO MONITOR.
[2019-06-28] MEDS ORDERED: COMBIVENT RESPIM4 GM INH (16:42)
[2019-06-28] MEDS ORDERED: Prednisone10 MG PO (16:44)
[2019-06-28] MEDS ORDERED: SPIRONOLACTONE50 MG PO (16:45)
[2019-06-28] MEDS ORDERED: OXYC5 PO (16:46)
[2019-06-28] MEDS ORDERED: TIOT18 INH (16:47)
--- NOTE | 2019-06-28 17:57 | NUR ---
SHIFT SUMMARY PATIENT REMAINED MOSTLY ALERT AND ORIENTED, HOWEVER HAD EPISODES OF FORGETFULNESS AND STILL CONTINUES NOT TO FULLY UNDERSTAND HIS CONDITION AND PROGNOSIS. PATIENT CONTINUES TO ASK CONCENTRATE ON WANTING WATER EVEN THOUGH HE CONTINUES TO HAVE PROBLEMS SWALLOWING. DR. SAMUELS IS AWARE OF THIS AND STATED IT IS OK TO CONTINUE TO GIVE HIM SMALL SIPS AND CHIPS. PATIENT GIVEN PRN FENTANYL FOR COMPLAINT OF CHRONIC BACK PAIN- PATIENT REPORTED RELIEF WITH ADMINISTRATION. PATIENT EITHER RESTING QUIETLY ON PRECEDEX OR VERY AGITATED AND NONCOMPLIANT, PULLING AT LINES AND O2 WHEN PRECEDEX BELOW 0.3 MCG/ KG/ HOUR. PATIENT HAD TMAX OF 100.3 DEGREES FAHRENHEIT. LUNGS SOUNDS REMAINED COARSE T/O. PATIENT CONTINUED TO HAVE MOIST COUGH BUT NEEDED SUCTIONING TO BRING UP THICK/ THIN, BLOODY SECRETIONS. PATIENT STARTED SHIFT ON AIRVO 50 L AND 75% FIO2 AND ENDED SHIFT ON AIRVO 55 L AND 70% FIO2. PATIENT REMAINS SOB WITH EXERTION. PATIENT REMAINED IN A.FIB, HR 90S TO 120S. SBP 80S TO LOW 100S. MAPS OVER 55. PATIENT DID NOT HAVE BM THIS SHIFT. BOYER REMAINED DRAINING DEVONTE COLORED URINE. PATIENT HAD ADEQUATE OUTPUT. NO CHANGE TO SKIN. PATIENT REPOSITIONED THROUGHOUT SHIFT. NS TKO. PRECEDEX CURRENTLY INFUSING AT 0.6 MCG/ KG/ HOUR. ABDOMINAL US PERFORMED THIS SHIFT. PATIENT APPEARS COMFORTABLE AT THIS TIME. BED LOW, CALL LIGHT IN REACH. PATIENT'S GF AND FRIEND AT BEDSIDE AT THIS TIME. REPORT WILL BE GIVEN TO ONCOMING INTERNATIONAL TRADE TEACHER NURSE SHORTLY.
--- NOTE | 2019-06-28 19:19 | NUR ---
Initial Spiritual Care note: Lengthy visit with SO, Oralia, at bedside. She was often tearful and appears to understand Oliver may well be nearing end-of-life. She expressed many regrets and told me the story of their relationship. Oralia feels very alone and fearful. She is hoping that pt will wake up enough to express his wishes. Oliver's dtr, Candriley, will arrive this evening. Oralia is conerned they will disagree about POC. I provided theraputic listening, emotional affirmation and gentle residential treatment counselor to good effect. We had an easy rapport. Encouraged self-care and rest. I will remain available.
[2019-06-29 04:58] LABS: BASOPHILS ABSOLUTE AUTO 0.08 K/mm3 (0.00-0.23); BASOPHILS PERCENT AUTO 1 % (0-2); Hematocrit 39.6 % (37.0-53.0); Hemoglobin 13.5 g/dL (13.5-17.5); LYMPHOCYTES ABSOLUTE AUTO 0.67 K/mm3 (0.84-5.20); LYMPHOCYTES PERCENT AUTO 5 % (21-46); MONOCYTES ABSOLUTE AUTO 0.36 K/mm3 (0.16-1.47); MONOCYTES PERCENT AUTO 3 % (4-13); Mean Corpuscular HGB 35.3 pg (26.0-34.0); Mean Corpuscular HGB Conc 34.1 g/dL (31.5-36.5); Mean Corpuscular Volume 104 fL (80-100); Platelet Count 53 K/mm3 (150-400); RDW Coefficient Variation 15.2 % (11.7-14.2); RDW Standard Deviation 58.1 fL (35.1-46.3); Red Blood Cell Count 3.82 M/mm3 (4.30-5.90); White Blood Cell Count 13.85 K/mm3 (4.00-11.30)
--- NOTE | 2019-06-29 04:59 | NUR ---
SHIFT SUMMARY PATIENT SLEPT OFF AND ON THROUGH NIGHT. RESPIRATORY STATUS UNDER CONTROL WHEN SEDATED VIA PRECEDEX GTT. CURRENTLY AIRVO 60 L 60%. THERE NEEDS TO BE A LENGTHY DISCUSSION ABOUT CONTINUATION OF CARE, RESOURCE MANAGEMENT WHEN HOME. THERE IS A DEFINITE DIVIDE IN THE ROOM BETWEEN THE DAUGHTER, LUIS, AND THE FRIEND/S.O., CINTIA. LUIS WANTS THE PATIENT TO ADHERE STRICTLY TO THE MEDICAL MANAGEMENT, CINTIA (AND FRIEND REFFERED TO ONLY 'BEETLEJUICE') ARE OF THE IDEA THE PATIENT SHOULD BE ABLE TO DO WHATEVER HE WANTS. PLACED A DOPE AND FABRIC WORKER CONSULT. ALSO NEED TO DISCUSS NUTRITION. PATIENT CONTINUING RESISTIVE TO KEEPING OXYGEN IN NOSE, STAYING IN BED SINCE HE HAS NO RESERVE. CONTINUES TO PULL OFF AIRVO. FRUSTRATED THAT NO ONE HEARS HIM, DID PLACE BILAT. HEARING AIDS. PATIENT HAS LIKELY ASPIRATED FROM DRINKING WATER, PROVIDED TO HIM BY CINTIA. CHEST X-RAY THIS AM DOES NOT LOOK GOOD. PATIENT REQUIRED X2 N.T.SUCTIONING, UNABLE TO CLEAR PHLEGM IN BACK OF THROAT. VSS. AWAITING A.M. LAB RESULTS. WILL CONTINUE TO MONITOR.
[2019-06-29 05:01] LABS: EOSINOPHILS PERCENT AUTO 0 % (0-6); IMMATURE GRAN ABSOLUTE AUTO 0.09 K/mm3 (0.00-0.10); IMMATURE GRAN PERCENT AUTO 1 % (0-1); NEUTROPHILS ABSOLUTE AUTO 12.65 K/mm3 (1.96-9.15); NEUTROPHILS PERCENT AUTO 91 % (41-73)
[2019-06-29 05:11] LABS: International Normalized Ratio 1.62; Prothrombin Time Results 16.4 Sec (9.7-11.5)
[2019-06-29 05:14] LABS: Alanine Aminotransfer (ALT/SGP 30 U/L (12-78); Albumin, Blood 2.8 g/dL (3.4-5.0); Albumin/Globulin Ratio 1.1 (0.8-1.8); Alk Phos 58 U/L (50-136); Anion Gap 8 mmol/L (6-16); Aspartate Aminotrans (AST/SGOT 41 U/L (12-37); Bilirubin, Direct 1.9 mg/dL (0.0-0.3); Bilirubin, Indirect 1.2 mg/dL (0.1-0.7); Bilirubin, Total 3.1 mg/dL (0.1-1.0); Blood Urea Nitrogen 45 mg/dL (8-24); Bun/Creatinine Ratio 45.3 (12.0-20.0); CO2, Blood 26 mmol/L (21-32); Calcium, Blood 8.6 mg/dL (8.5-10.1); Chloride, Blood 107 mmol/L (98-108); Creatinine, Blood 0.99 mg/dL (0.60-1.20); Globulin, Blood 2.5 g/dL (2.2-4.0); Glomerular Filtration Rate >60 (60-); Glucose, Blood 155 mg/dL (70-99); Phosphorus, Blood 2.4 mg/dL (2.5-4.9); Potassium, Blood 3.6 mmol/L (3.5-5.5); Sodium, Blood 141 mmol/L (136-145); Total Protein, Blood 5.3 g/dL (6.4-8.2); Vancomycin, Trough 18.9 ug/mL (5.0-10.0)
--- NOTE | 2019-06-29 05:28 | NUR ---
PATIENT STATES "I WANT TO ." FRIENDS AT THE BEDSIDE ENCOURAGING HIM TO KEEP GOING, "YOU'RE STRONG, YOU'LL GET THROUGH THIS." PATIENT IS FULLY AWAKE, ALERT, ORIENTED. ASKED HIM TO MAKE HIS WISHES KNOWN TO [facility] DRY YARD WORKER. WILL CONTINUIE TO MONITOR.
--- NOTE | 2019-06-29 07:30 | NUR ---
ASSUMED CARE NOTE: ASSUMED CARE OF PT @ 0700, RECEVIED REPORT FROM CASIE WREN. PT ON AIRVO WITH SETTINGS @ 60L/60% FiO2, SPO2 ABOVE 90%, RR 35-40. PT CONTINUES TO TAKE OFF HIGH FLOW O2, HE REFUSES TO PUT IT BACK ON AT TIMES. DAUGHTER ATTEMPTING TO ENGOURAGE PT TO USE OXYGEN. PT'S AGITATION IS INCREASING AND HE STATES " LET ME , I WANT TO " PALLITAIVE CARE CALLED. PT STATES HE IS IN PAIN, WHEN ASKED WHERE HE STATES "EVERYWHERE", PT MEDICATED PER EMAR. PT IN AFIB WITH HR BETWEEN 95-120 BPM. PT DENIES ANY CP AT THIS TIME. FAMILY AT BEDSIDE STATING " HE SHOULD BE ABLE TO DO WHAT HE WANTS" FAMILY AWARE OF PT'S RISK OF ASPIRATION. WILL CONTINUE TO MONITOR T/O SHIFT.
--- NOTE | 2019-06-29 08:59 | NUR ---
Called to ICU per nursing request as pt has expressed his wish to to staff last night. Family is in room. Pt is anxious and frustrated. "I can't breathe." He is very [place]. His dtr Kasey and Arjun Barton are at the bedside, along with another gentleman. Kasey tells this hand sign writer that she has never had a conversation with her dad about what his wishes would be in a situation like this. Oliver is awake and alert and oriented. Kasey asked her dad what he would want and he was very clear in saying that he would not want to be on a ventilator. "Pull the plug" and "Let me ." He was asked the question about resusitation and ventilation by this hand sign writer in a different way and his answer was the same. He wants to be comfortable. He states he is tired. Kasey and Oralia are supportive of his decision, he wants to be comfortable. He wants staff to give him medicine help him , "like they do in custodial." Explained to him that euthanization is not what comfort care is. It is focusing on comfort. He is easily frustrated "No one is hearing me, I want to ." He wants to drink and eat and remove his oxygen. Explained his NPO status and that this could change based on the direction of care he chooses. He is asking for water and continues to remove his oxygen. Nursing contacted and new orders rec'd. MD did not make pt comfort care status he plans to visit with pt and family this am. Kasey reports they know the CXR shows worsening pneumonia. Family and pt educated on aspiration and likelihood of recurrent aspiration pneumonia in the future. Should be survice this acute illness, he will likely have a lengthy recovery period and would remain at high risk for continued aspiration. Emotional support given to patient and family. Pt has been made a DNR at this time and a diet order was placed. Will wait for pt and family to meet with MD to further discuss his wishes and plan of care. PC will remain available.
--- NOTE | 2019-06-29 09:35 | NUR ---
UPDATE: IN ROOM, ALONG WITH PALLATIVE CARE. PATIENT AND FAMILY DECIDED TO PLACE PT ON COMFORT CARE. ORDERES HAVE BEEN PLACED. SO AND DAUGHTER AT BEDSIDE.
--- NOTE | 2019-06-29 09:51 | NUR ---
Met with pt, family, nursing and Dr. Kelley. Pt is adament that he be made comfort care and allowed to . He continues to have aggitation and anxiety and doesn't want to wear his oxygen. New comfort care order set orders placed and nursing to medicate with ativan as soon as possible. Emotional support given to pt and family. Dtr states he would want to be home to with his dog, however, she tells this expert medical writer that she is unsure if he would survive the trip home. Will focus on getting Oliver comfortable at this time and will continue to give pt and family support.
--- NOTE | 2019-06-29 13:37 | NUR ---
UPDATE: PT SUCTIONED AND MEDICATED PER EMAR FOR COMFORT. AT BEDSIDE, NO NEW ORDERS GIVEN. WILL MONITOR PT T/O SHIFT
--- NOTE | 2019-06-29 14:00 | NUR ---
TRANSFER: PT TRANSFER TO MEDICAL FLOOR, REPORT GIVEN TO CASTRO WREN. PT TRANSFERED VIA BED, AND ON 15L OF 02 VIA NON-REBREATHER MASK.
--- NOTE | 2019-06-29 16:24 | NUR ---
PATIENT TRANSFER FROM ICU15. PATIENT IN NO APPARENT DISTRESS. NO DYSPNEA/SOB/SECRETIONS. FAMILY PRESENT. WCTM.
--- NOTE | 2019-06-29 17:44 | NUR ---
Spiritual Care alexis note: Several visits with Oliver's family throughout this day. One-on-one school counsellor with dtr, Kasey, this morning. Her biggest concern is that pt does not suffer. Prayer provided for Kasey. Later, Arjun Barton and family friends arrived. Kasey and her father's SO/friends have clashing personalities, but Kasey has been doing an excellent job maintaining peace. Friends have had numerous questions/concerns throughout the day, and have asked me to return again and again. I have provided guidence and school counsellor to good effect. Pt now on medical floor. Breaths have slowed and hands are mottled. He is non-responsive and appears confortable. Dtr and friends plan to stay throughout night. Encouraged breaks and self-care. Regulatory Analyst services will remain available.
--- NOTE | 2019-06-29 18:12 | NUR ---
MEDICATED FOR AIR HUNGER & SECRETIONS PER EMAR. FAMILY IN ROOM. WCTM.
--- NOTE | 2019-06-29 19:45 | NUR ---
SHIFT SUMMARY: PATIENT TRANSFER FROM ICU15 THIS SHIFT. PT ON COMFORT CARE; PT UNRESPONSIVE; AIRVO IN PLACE @ 60L. MEDICATED FOR AIR HUNGER & SECRETIONS PER EMAR. FAMILY IN ROOM. REPORT GIVEN TO ONCOMING RN.
--- NOTE | 2019-06-30 02:34 | NUR ---
PATIENT NON-RESPONSIVE. FAMILY/DAUGHTER REFUSING ATROPINE DROPS AND SCOPOLAMINE PATCH DURING THIS SHIFT. FAMILY DAUGHTER REFUSING ROXANOL FOR PAIN REPORTING TO SEE HOW PATIENT WILL DO. ON COMFORT CARE. FAMILY STAYING THE NIGHT. WILL CONTINUE TO MONITOR
--- NOTE | 2019-06-30 04:24 | NUR ---
SHIFT SUMMARY PATIENT ON COMFORT CARE. UNRESPONSIVE. FAMILY/DAUGHTER REPORTS NOT TO MANAGE FOR AIR HUNGER AND PAIN. ALSO REPORTS NOT TO GIVE ATROPINE DROPS OR PUT ON SCOPOLAMINE PATCH; TO SEE IF PATIENT IMPROVES. ON AIRVO AT 60 L MANAGE BY RT. ROSALIND BANKS. NPO. CALL LIGHT IN REACH FOR FAMILY. BED IN LOWEST POSITION. FAMILY STAYED THE NIGHT. WILL CONTINUE TO MONITOR UNTIL DAY SHIFT NURSE ASSUMES CARE.
[2019-06-30] MEDS ORDERED: MORP20L SL (09:31)
[2019-06-30] MEDS ORDERED: ATROPINE 0.01%-10 ML SL (09:32)
[2019-06-30] MEDS ORDERED: Transderm-Scop1 EACH TOP (09:33)
[2019-06-30] MEDS ORDERED: LORA1 SL (09:43)
--- NOTE | 2019-06-30 10:11 | NUR ---
Comfort Care Visit: Pt resting in bed and is non responsive. Mottling noted on BLUE and BLLE. Minimal effort for work of breathing with intermittent periods of apnea. Secretions noted. Family at bedside. Educated on actively dying stage with possible S/S Pt may experience. Family is adamant with taking Pt home today and is requesting hospital discharge to be expedited. Plant Scientist Chelsy intermittently present and working with family to assist in goals for discharge. Daughter Kasey signs POLST with Pt's wishes to be DNR and Comfort Measures Only. Validated concerns and offered emotional support. Dr Alvarado signs POLST and prescriptions for comfort medications. Prescription form given to family to hand deliver to pharmacy of choice. Pt appears imminent and recommendations are for Pt to remain in hospital to minimize disruption of peaceful comfortable passing. Family aware of recommendations. Faxed copy of POLST to medical records. 3 copies and original POLST given to family. Palliative Care will remain available.
--- NOTE | 2019-06-30 15:02 | NUR ---
DISCHARGE SUMMARY PT AT 1018 AM WITH FAMILY AT BEDSIDE. SOFTWARE DEVELOPER MID LEVEL VISITED PRIOR WELL AFTER. PT REQUESTED TO USE SOFTWARE DEVELOPER MID LEVEL OF THE [facility] FROM THIS FACILITY PICKED HIM UP. PIVS AND BOYER HAD BEEN REMOVED, FAMILY REQUESTED THAT ID BAND BE LEFT IN PLACE.
--- NOTE | 2019-06-30 18:12 | NUR ---
Present with family throughout morning. At bedside when pt passed peacefully. Family tearful, but appropriate.
== END 2019-06-30 10:18 | DRG 871 ==
LOC: ER 09:42 → PCU 11:18 → ICUW 11:18 → MEDS 06-29 16:01
PROVIDERS: Emergency Medicine; Hospitalist; Internal Medicine Critical Care Medicine; Pharmacist; ADMIT Internal Medicine
DX: A41.01 Sepsis due to Methicillin susceptible Staphylococcus aureus (principal); R65.21 Severe sepsis with septic shock; J69.0 Pneumonitis due to inhalation of food and vomit; J96.21 Acute and chronic respiratory failure with hypoxia; I50.32 Chronic diastolic (congestive) heart failure; Z51.5 Encounter for palliative care; Z66 Do not resuscitate; G89.4 Chronic pain syndrome; I48.91 Unspecified atrial fibrillation; K74.60 Unspecified cirrhosis of liver; I11.0 Hypertensive heart disease with heart failure; J44.9 Chronic obstructive pulmonary disease, unspecified; K21.9 Gastro-esophageal reflux disease without esophagitis; D69.6 Thrombocytopenia, unspecified; I27.20 Pulmonary hypertension, unspecified; E83.39 Other disorders of phosphorus metabolism; B19.20 Unspecified viral hepatitis C without hepatic coma; Z99.81 Dependence on supplemental oxygen; Z79.02 Long term (current) use of antithrombotics/antiplatelets; Z79.82 Long term (current) use of aspirin; Z79.899 Other long term (current) drug therapy; Z87.891 Personal history of nicotine dependence
CPT/HCPCS: 0099U; 31720; 36415; 51702; 71045; 76705; 80053; 80069; 80202; 81001; 82248; 82803; 83605; 83880; 84100; 84145; 84443; 84484; 85025; 85610; 85730; 87040; 87070; 87077; 87086; 87147; 87186; 87205; 92610; 93005; 93010; 93308; 93321; 94640; 96365; 96366; 96368; 96376; 99285-25; J0456; J0696; J1170; J1650; J1940; J2060; J2270; J2543; J3010; J3370; J3411; J7030; J7040; J7050; J7060; J7120; P9046